=== PATIENT | male | born 1970 | race Caucasian/White ===

== ENCOUNTER 2019-06-09 10:49 | Emergency (ER) | payer MEDICAID ==
[~2019-06-09] VITALS: Ht 185.4 cm; Wt 101.0 kg
[~2019-06-09 10:49] MED LIST: LEVO75TA PO
[2019-06-09 11:12] LABS: CLARITY,URINE CLEAR (Clear); COLOR,URINE YELLOW (Yellow); GLUCOSE, URINE NEGATIVE (Neg); KETONES,URINE NEGATIVE (Neg); LEUKOCYTE ESTERASE ,URINE NEGATIVE (Neg); NITRITES, URINE NEGATIVE (Neg); OCCULT BLOOD,URINE TRACE-INTACT (Neg); PROTEIN,URINE TRACE mg/dl (Neg); UROBILINOGEN,URINE 0.2 E.U/dL (0.2-1.0)
[2019-06-09 11:16] LABS: UA COLLECTION TYPE CLN CATCH MIDSTREAM
[2019-06-09 11:19] LABS: BACTERIA,URINE NONE SEEN /HPF (Neg); MUCUS STRANDS NONE SEEN /LPF (Neg); RBC,URINE 0-2 /HPF (0-2); SQUAMOUS EPITHELIAL CELL,UR FEW /LPF (FEW); WBC,URINE 0-4 /HPF (0-4)
[2019-06-09 11:31] LABS: BASOPHILS % (AUTO) 0.3 % (0-1); EOSINOPHILS # (AUTO) 0.2 X10'3 (0-0.9); EOSINOPHILS % (AUTO) 1.8 % (0-6); HEMOGLOBIN 16.7 g/dl (14.0-17.9); LYMPHOCYTES # (AUTO) 2.8 X10'3 (1.1-4.8); LYMPHOCYTES % (AUTO) 31.2 % (21-51); MEAN CORPUSCULAR HEMOGLOBIN 31.2 PG (27.0-31.0); MEAN CORPUSCULAR HGB CONC 34.9 g/dL (33.0-36.5); MEAN CORPUSCULAR VOLUME 89.6 FL (78-98); MEAN PLATELET VOLUME 7.2 FL (7.4-10.4); MONOCYTES # (AUTO) 0.8 X10'3 (0-0.9); MONOCYTES % (AUTO) 9.3 % (2-12); NEUTROPHILS # (AUTO) 5.2 X10'3 (1.8-7.7); NEUTROPHILS % (AUTO) 57.4 % (42-75); PLATELET COUNT 290 X10'3 (140-440); RED BLOOD COUNT 5.36 X10'6 (4.70-6.10); RED CELL DISTRIBUTION WIDTH 13.7 % (11.5-14.5)
[2019-06-09 11:47] LABS: ALANINE AMINOTRANSFERASE 55 U/L (12-78); ALBUMIN 3.5 G/DL (3.4-5.0); ALBUMIN/GLOBULIN RATIO 0.7 (1.1-1.5); ALKALINE PHOSPHATASE 86 IU/L (46-116); ANION GAP 11 (8-16); ASPARTATE AMINO TRANSFERASE 34 U/L (10-37); BILIRUBIN,TOTAL 0.6 MG/DL (0.1-1.0); BLOOD UREA NITROGEN 14 MG/DL (7-18); CALCIUM 8.7 MG/DL (8.5-10.1); CHLORIDE 101 MMOL/L (99-107); CREATININE 1.08 MG/DL (0.60-1.10); GLUCOSE 100 MG/DL (70-104); LIPASE 197 U/L (73-393); POTASSIUM 3.3 MMOL/L (3.5-5.1); SODIUM 134 MMOL/L (135-145); TOTAL CARBON DIOXIDE 22.4 MMOL/L (24-32); TOTAL PROTEIN 8.3 G/DL (6.4-8.2); eGFR 73 ML/MIN
[2019-06-09] MEDS ORDERED: diphenhydrAMINE 50 mg/ml inj IV ONE (12:05)
[2019-06-09] MEDS ORDERED: metoclopramide 5 mg/ml inj IV ONE (12:05)
[2019-06-09] MEDS ORDERED: glycopyrrolate 0.2mg/ml inj IV ONE (12:35)
[2019-06-09] MEDS ORDERED: normal saline 1000ml 1,000 ML IV ONE ×2 (12:35)
[2019-06-09] MEDS ORDERED: ONDA4TAB12 PO (13:38)
[2019-06-09] MEDS ORDERED: DICY10CA88 PO (13:38)
[2019-06-09] MEDS ORDERED: POTA20TA19 PO (13:38)
[2019-06-09 13:51] VITALS: BP 18/121
== END 2019-06-09 13:52 | disposition home or self-care (01) ==
LOC: ER 10:50
DX: E86.0 Dehydration (principal); E87.6 Hypokalemia; R10.13 Epigastric pain; R11.2 Nausea with vomiting, unspecified; R19.7 Diarrhea, unspecified; Z90.49 Acquired absence of other specified parts of digestive tract; Z79.899 Other long term (current) drug therapy
CPT/HCPCS: 36415; 80053; 81001; 83690; 85025; 96361; 96374; 96375; 99283; J1200; J2765; J7030; J3490

== ENCOUNTER 2023-09-12 16:04 | Emergency (ER) | payer MEDICAID ==
[~2023-09-12] VITALS: Ht 185.4 cm; Wt 107.2 kg
[~2023-09-12 16:04] MED LIST changes: +ONDA4TAB12 PO
[2023-09-12] MEDS: methylPREDNISolone sod succ 125mg/2ml vial IM ONE (16:51)
[2023-09-12] MEDS: diphenhydrAMINE 50 mg/ml inj IM ONE (16:51)
[2023-09-12] MEDS: naphazoline/pheniramine eye 1 DROP BOTTLE LEFTEYE STA (16:53)
[2023-09-12] MEDS ORDERED: DIPH25CA83 PO (17:24)
[2023-09-12] MEDS ORDERED: PRED20TA PO (17:24)
[2023-09-12 17:32] VITALS: BP 151/78; PULSE 88; RESP 16; TEMP 98.2; O2SAT 99
== END 2023-09-12 17:35 | disposition home or self-care (01) ==
LOC: ER 16:05
DX: H11.422 Conjunctival edema, left eye (principal)
CPT/HCPCS: 96372; 99284; J1200; J2930